=== PATIENT | male | born 1980 | race Caucasian/White ===

== ENCOUNTER 2018-06-13 16:12 | Emergency (ER) | payer OTHER, MEDICAID, SELFPAY ==
[2018-06-13 16:19] VITALS: BP 119/68; PULSE 66; RESP 16; TEMP 36.7; O2SAT 99; BMI 21.4
--- NOTE | 2018-06-13 16:22 | DI.RAD.S_ITS ---
PROCEDURE: XR FINGER RT MIN 2V INDICATIONS: Trauma TECHNIQUE: AP hand, 2 views of the 5th finger(s) acquired. COMPARISON: None. FINDINGS: Bones: There is a transverse fracture with mild displacement at the base of the fifth proximal phalanx. No suspicious bony lesions. Soft tissues: No suspicious soft tissue calcifications. IMPRESSION: Transverse fracture at the base of the fifth proximal phalanx. Dictated by: Emily Smith M.D. on 06/13/2018 at 16:41 Approved by: Emily Smith M.D. on 06/13/2018 at 16:44
--- NOTE | 2018-06-13 16:29 | ED.UPPEXIN ---
HPI - Extremity Injury (Upper) <VY Dennison - Last Filed: 06/13/18 18:30> General Chief Complaint: Extremity Injury, Upper Stated Complaint: right arm injury Time Seen by Provider: 06/13/18 16:29 Source: patient and family Mode of arrival: ambulatory Limitations: no limitations History of Present Illness HPI narrative: Patient states that he crushed his right pinky finger between 2 logs. He states that happened like this morning approximately 11:30 a.m.. He is seen by paramedics on [place] given 30 mg of Toradol. He states that there is no obvious deformity to his right pinky finger. He denies any pain to his wrist is states that he was able to move his wrist while. He states he was able to move his other fingers well. He was splinted with a JESI splint by paramedics from the past. He denies any lacerations. Related Data Home Medications Medication Instructions Recorded Confirmed No Known Home Medications 06/13/18 06/13/18 Allergies Allergy/AdvReac Type Severity Reaction Status Date / Time codeine Allergy Verified 06/13/18 16:34 Review of Systems <VY Dennison - Last Filed: 06/13/18 18:30> Review of Systems GENERAL: Denies chills, fatigue, malaise, fever, sweats. HEENT: Denies sinus pain, ear pain, sore throat, difficulty swallowing, dizziness. RESPIRATORY: Denies dyspnea, cough, wheezing, hemoptysis, sputum. CARDIOVASCULAR: Denies chest pain, palpitations, orthopnea, edema, GASTROINTESTINAL: Denies nausea, vomiting, abdominal pain, diarrhea, constipation, melena. : Denies dysuria, frequency, incontinence, hematuria, urinary retention. MUSCULOSKELETAL: See HPI SKIN: See HPI NEUROLOGIC: Denies weakness, headache, numbness, change in speech, confusion, seizures, incoordination. PSYCHIATRIC: No concerning psychosocial issues. 12 point review of systems is negative except for those stated above Exam <VY Dennison - Last Filed: 06/13/18 18:30> Narrative Exam Narrative: GENERAL: This is a well-nourished, well-developed patient, no acute distress with family at bedside. HEAD: Atraumatic. Normocephalic. No temporal or scalp tenderness. EYES: Pupils equal round and reactive. Extraocular motions intact. No scleral icterus. No injection or drainage. ENT: Nose without bleeding, purulent drainage or septal hematoma. Throat without erythema, tonsillar hypertrophy or exudate. Uvula midline. Airway patent. NECK: Trachea midline. No JVD or lymphadenopathy. Supple, nontender, no meningeal signs. CARDIOVASCULAR: Regular rate and rhythm without murmurs, gallops, or rubs. RESPIRATORY: Clear to auscultation. Breath sounds equal bilaterally. No wheezes, rales, or rhonchi. GASTROINTESTINAL: Abdomen soft, non-tender, nondistended. No hepato-splenomegaly, or palpable masses. No guarding. EXTREMITIES: Obvious deformity of right hand 5th digit. Digit is flexed and slightly rotated externally. Sensation is intact. Skin is warm right pinky finger. Patient has full range of motion all other digits of right finger. Patient is able to flex and extend right wrist. Patient is able to pronate and supinate right wrist. He has no pain on palpation of right snuffbox. BACK: Nontender without deformity or crepitance. No flank tenderness. NEURO: AOx3. SKIN: Ecchymosis at the base of the right 5th finger. However skin is intact with no lacerations. Initial Vital Signs Initial Vital Signs: Vital Signs Temperature 98.0 F 06/13/18 16:19 Pulse Rate 66 06/13/18 16:19 Respiratory Rate 16 06/13/18 16:19 Blood Pressure 119/68 06/13/18 16:19 Pulse Oximetry 99 06/13/18 16:19 <Mike Ledesma DO - Last Filed: 06/14/18 07:11> Initial Vital Signs Initial Vital Signs: Vital Signs Temperature 98.0 F 06/13/18 16:19 Pulse Rate 66 06/13/18 16:19 Respiratory Rate 16 06/13/18 16:19 Blood Pressure 119/68 06/13/18 16:19 Pulse Oximetry 99 06/13/18 16:19 Procedures <VY Dennison - Last Filed: 06/13/18 18:30> Orthopedic Fracture Reduction Fracture #1: Time Out Performed: Yes (patient participating in care ) Side: right Fracture Reduction Location: finger Analgesia: nerve block (2.5 cc l idocaine digital block) Technique: direct manipulation Post-reduction neuro exam: no change Post-reduction vascular exam: intact Splint Applied: Yes Patient Tolerated Procedure: Well Additional Comments: finger warm after procedure Course <VY Dennison - Last Filed: 06/13/18 18:30> Additional Information: Patient had x-rays taken. He received a digital block as per the procedural note. His finger was reduced and splinted. The finger remained warm after splinting. The patient declined any anxiety or pain medications prior to reduction. He declined any pain medication prescriptions upon discharge. I checked on him several times throughout his stay. Orders Ordered: ED Orders 06/13/18 16:22 XR finger RT min 2V Stat Vital Signs - 8 hr 06/13/18 16:19 06/13/18 17:40 Temperature 98.0 F Pulse Rate 66 75 Respiratory Rate 16 16 Blood Pressure 119/68 Blood Pressure [Left Arm] 122/65 H Pulse Oximetry 99 99 <Mike Ledesma DO - Last Filed: 06/14/18 07:11> Orders Ordered: ED Orders 06/13/18 16:22 XR finger RT min 2V Stat Vital Signs - 8 hr 06/13/18 16:19 06/13/18 17:40 Temperature 98.0 F Pulse Rate 66 75 Respiratory Rate 16 16 Blood Pressure 119/68 Blood Pressure [Left Arm] 122/65 H Pulse Oximetry 99 99 MDM - Extremity Injury (Upper) <GUSTAVO Dennison-BC - Last Filed: 06/13/18 18:30> Imaging Data finger xray : Radiologist's impression: [address] [address] XRay Report Signed Patient: Scotty Peter MR#: [id number] : 1980 Acct:[id number] Age/Sex: 38 / M Date of Service: 06/13/18 Loc: ED Accession Number: [id number] Procedure: XR finger RT min 2V Ordering Provider: Mike Ledesma D.O. PROCEDURE: XR FINGER RT MIN 2V INDICATIONS: Trauma TECHNIQUE: AP hand, 2 views of the 5th finger(s) acquired. COMPARISON: None. FINDINGS: Bones: There is a transverse fracture with mild displacement at the base of the fifth proximal phalanx. No suspicious bony lesions. Soft tissues: No suspicious soft tissue calcifications. IMPRESSION: Transverse fracture at the base of the fifth proximal phalanx. Dictated by: Emily Smith M.D. on 06/13/2018 at 16:41 Approved by: Emily Smith M.D. on 06/13/2018 at 16:44 [facility] Narrative Medical decision making narrative: Patient presented with a fracture of his right 5th digit. It was reduced per the procedural note. Patient tolerated well. He was splinted afterwards, and his finger remained warm. Capillary refill is intact after the reduction. Discussed at length with patient and follow-up care. Referral placed for [facility]. Patient declined pain medication upon discharge. Discussed at length monitoring for circulation of his 5th digit. Discharge Plan Departure Patient Disposition: Home, Self-Care Clinical Impression: Finger fracture, right Discharge Date/Time: 06/13/18 18:08 Interventions: ED Discharge Assessment Last Done: 06/13/18 18:08 Instructions: DI for Finger Fracture, How To Perform RICE (Rest, Ice, Compress, Elevate), How to Take Care of Your Splint Activity Restrictions/Additional Instructions: I have referred you to [facility]. I encourage you to follow up with them. Can also follow up with primary care physician. Use rest, ice, compression and elevation. Take ibuprofen and Tylenol as needed for pain. I have given you instructions on caring for splint, finger fracture and rest eyes compression and elevation. Monitor for circulation of the finger by monitoring for warmth and color. Be evaluated immediately if you are concerned about decreased circulation. Prescriptions: No Action No Known Home Medications RF: 0 Referrals: [facility] [Outside] Allen Myers MD [Physician] - <Mike Ledesma DO - Last Filed: 06/14/18 07:11> Cosign ED Attending Faizaature Attestation: I was available for consultation during this patient's emergency department encounter
[2018-06-13 17:40] VITALS: BP 122/65; PULSE 75; RESP 16; O2SAT 99
--- NOTE | 2018-06-13 17:41 | ED_ITS ---
HPI - Extremity Injury (Upper) <VY Dennison - Last Filed: 06/13/18 18:30> General Chief Complaint: Extremity Injury, Upper Stated Complaint: right arm injury Time Seen by Provider: 06/13/18 16:29 Source: patient and family Mode of arrival: ambulatory Limitations: no limitations History of Present Illness HPI narrative: Patient states that he crushed his right pinky finger between 2 logs. He states that happened like this morning approximately 11:30 a.m.. He is seen by paramedics on [place] given 30 mg of Toradol. He states that there is no obvious deformity to his right pinky finger. He denies any pain to his wrist is states that he was able to move his wrist while. He states he was able to move his other fingers well. He was splinted with a JESI splint by paramedics from the past. He denies any lacerations. Related Data Home Medications Medication Instructions Recorded Confirmed No Known Home Medications 06/13/18 06/13/18 Allergies Allergy/AdvReac Type Severity Reaction Status Date / Time codeine Allergy Verified 06/13/18 16:34 Review of Systems <VY Dennison - Last Filed: 06/13/18 18:30> Review of Systems GENERAL: Denies chills, fatigue, malaise, fever, sweats. HEENT: Denies sinus pain, ear pain, sore throat, difficulty swallowing, dizziness. RESPIRATORY: Denies dyspnea, cough, wheezing, hemoptysis, sputum. CARDIOVASCULAR: Denies chest pain, palpitations, orthopnea, edema, GASTROINTESTINAL: Denies nausea, vomiting, abdominal pain, diarrhea, constipation, melena. : Denies dysuria, frequency, incontinence, hematuria, urinary retention. MUSCULOSKELETAL: See HPI SKIN: See HPI NEUROLOGIC: Denies weakness, headache, numbness, change in speech, confusion, seizures, incoordination. PSYCHIATRIC: No concerning psychosocial issues. 12 point review of systems is negative except for those stated above Exam <VY Dennison - Last Filed: 06/13/18 18:30> Narrative Exam Narrative: GENERAL: This is a well-nourished, well-developed patient, no acute distress with family at bedside. HEAD: Atraumatic. Normocephalic. No temporal or scalp tenderness. EYES: Pupils equal round and reactive. Extraocular motions intact. No scleral icterus. No injection or drainage. ENT: Nose without bleeding, purulent drainage or septal hematoma. Throat without erythema, tonsillar hypertrophy or exudate. Uvula midline. Airway patent. NECK: Trachea midline. No JVD or lymphadenopathy. Supple, nontender, no meningeal signs. CARDIOVASCULAR: Regular rate and rhythm without murmurs, gallops, or rubs. RESPIRATORY: Clear to auscultation. Breath sounds equal bilaterally. No wheezes , rales, or rhonchi. GASTROINTESTINAL: Abdomen soft, non-tender, nondistended. No hepato-splenomegaly , or palpable masses. No guarding. EXTREMITIES: Obvious deformity of right hand 5th digit. Digit is flexed and slightly rotated externally. Sensation is intact. Skin is warm right pinky finger. Patient has full range of motion all other digits of right finger. Patient is able to flex and extend right wrist. Patient is able to pronate and supinate right wrist. He has no pain on palpation of right snuffbox. BACK: Nontender without deformity or crepitance. No flank tenderness. NEURO: AOx3. SKIN: Ecchymosis at the base of the right 5th finger. However skin is intact with no lacerations. Initial Vital Signs Initial Vital Signs: Vital Signs Temperature 98.0 F 06/13/18 16:19 Pulse Rate 66 06/13/18 16:19 Respiratory Rate 16 06/13/18 16:19 Blood Pressure 119/68 06/13/18 16:19 Pulse Oximetry 99 06/13/18 16:19 <Mike Ledesma DO - Last Filed: 06/14/18 07:11> Initial Vital Signs Initial Vital Signs: Vital Signs Temperature 98.0 F 06/13/18 16:19 Pulse Rate 66 06/13/18 16:19 Respiratory Rate 16 06/13/18 16:19 Blood Pressure 119/68 06/13/18 16:19 Pulse Oximetry 99 06/13/18 16:19 Procedures <VY Dennison - Last Filed: 06/13/18 18:30> Orthopedic Fracture Reduction Fracture #1: Time Out Performed: Yes (patient participating in care ) Side: right Fracture Reduction Location: finger Analgesia: nerve block (2.5 cc l* idocaine digital block) Technique: direct manipulation Post-reduction neuro exam: no change Post-reduction vascular exam: intact Splint Applied: Yes Patient Tolerated Procedure: Well Additional Comments: finger warm after procedure Course <VY Dennison - Last Filed: 06/13/18 18:30> Additional Information: Patient had x-rays taken. He received a digital block as per the procedural note. His finger was reduced and splinted. The finger remained warm after splinting. The patient declined any anxiety or pain medications prior to reduction. He declined any pain medication prescriptions upon discharge. I checked on him several times throughout his stay. Orders Ordered: ED Orders 06/13/18 16:22 XR finger RT min 2V Stat Vital Signs - 8 hr 06/13/18 16:19 06/13/18 17:40 Temperature 98.0 F Pulse Rate 66 75 Respiratory Rate 16 16 Blood Pressure 119/68 Blood Pressure [Left Arm] 122/65 H Pulse Oximetry 99 99 <Mike Ledesma DO - Last Filed: 06/14/18 07:11> Orders Ordered: ED Orders 06/13/18 16:22 XR finger RT min 2V Stat Vital Signs - 8 hr 06/13/18 16:19 06/13/18 17:40 Temperature 98.0 F Pulse Rate 66 75 Respiratory Rate 16 16 Blood Pressure 119/68 Blood Pressure [Left Arm] 122/65 H Pulse Oximetry 99 99 MDM - Extremity Injury (Upper) <VY Dennison - Last Filed: 06/13/18 18:30> Imaging Data finger xray : Radiologist's impression: [address] [address] XRay Report Signed Patient: Scotty Peter MR#: [id number] : 1980 Acct:[id number] Age/Sex: 38 / M Date of Service: 06/13/18 Loc: ED Accession Number: [id number] Procedure: XR finger RT min 2V Ordering Provider: Mike Ledesma D.O. PROCEDURE: XR FINGER RT MIN 2V INDICATIONS: Trauma TECHNIQUE: AP hand, 2 views of the 5th finger(s) acquired. COMPARISON: None. FINDINGS: Bones: There is a transverse fracture with mild displacement at the base of the fifth proximal phalanx. No suspicious bony lesions. Soft tissues: No suspicious soft tissue calcifications. IMPRESSION: Transverse fracture at the base of the fifth proximal phalanx. Dictated by: Emily Smith M.D. on 06/13/2018 at 16:41 Approved by: Emily Smith M.D. on 06/13/2018 at 16:44 MDM Narrative Medical decision making narrative: Patient presented with a fracture of his right 5th digit. It was reduced per the procedural note. Patient tolerated well. He was splinted afterwards, and his finger remained warm. Capillary refill is intact after the reduction. Discussed at length with patient and follow-up care. Referral placed for [facility]. Patient declined pain medication upon discharge. Discussed at length monitoring for circulation of his 5th digit. Discharge Plan Departure Patient Disposition: Home, Self-Care Clinical Impression: Finger fracture, right Discharge Date/Time: 06/13/18 18:08 Interventions: ED Discharge Assessment Last Done: 06/13/18 18:08 Instructions: DI for Finger Fracture, How To Perform RICE (Rest, Ice, Compress , Elevate), How to Take Care of Your Splint Activity Restrictions/Additional Instructions: I have referred you to [facility]. I encourage you to follow up with them. Can also follow up with primary care physician. Use rest, ice, compression and elevation. Take ibuprofen and Tylenol as needed for pain. I have given you instructions on caring for splint, finger fracture and rest eyes compression and elevation. Monitor for circulation of the finger by monitoring for warmth and color. Be evaluated immediately if you are concerned about decreased circulation. Prescriptions: No Action No Known Home Medications RF: 0 Referrals: [facility] [Outside] Allen Myers MD [Physician] - <Mike Ledesma DO - Last Filed: 06/14/18 07:11> Cosign ED Attending Faizaature Attestation: I was available for consultation during this patient's emergency department encounter
== END 2018-06-13 18:08 | disposition home or self-care (01) ==
PROVIDERS: Emergency Provider Nurse Practitioner Family
DX: S62.606A Fracture of unspecified phalanx of right little finger, initial encounter for closed fracture (principal); W23.0XXA Caught, crushed, jammed, or pinched between moving objects, initial encounter
CPT/HCPCS: 26725; 73140; 99283

== ENCOUNTER 2018-06-23 13:02 | Day surgery (SDC) | payer OTHER, MEDICAID, SELFPAY ==
[2018-06-23] VITALS (7 sets, daily range): BP systolic 116–143; BP diastolic 86–96; PULSE 52–62; RESP 10–16; TEMP 36.2–37.1; O2SAT 99–100; BMI 20.5
[2018-06-23] MEDS: LACTATED RINGERS 1,000 ML 42 ML IV (14:22)
--- NOTE | 2018-06-23 15:11 | PM.PREOP ---
Pre-operative Note Interval Note Pre-op Check: Yes History & Physical Reviewed by Physician and Yes Exam Performed Changes: No
[2018-06-23] MEDS: CEFAZOLIN 2 GM/100 ML FROZ.PIGGY IV (15:15)
--- NOTE | 2018-06-23 15:19 | P.OP_ITS ---
Operative Date/Time/Diagnoses Date of procedure: 06/23/18 Time of procedure: 16:20 Pre-op diagnosis: Right small finger proximal phalanx fracture s62.616A Post-op diagnosis: same Procedure & Clinicians Procedure: Closed reduction and percutaneous fixation right small finger proximal [place]alan[place] [address] Same procedure as scheduled: Yes Indications: The patient is a 38-year-old right-hand dominant male with a 10 day history of a right small finger proximal phalanx fracture. He got his hand stuck between 2 logs. He was seen in the clinic by my partners where he was found to have a unstable apex volar proximal phalanx fracture, I have been asked to assume care for the patient. Patient has been indicated for closed reduction percutaneous pinning versus open reduction internal fixation, to address the deformity and displacement. The risks benefits and alternatives to the surgery were discussed with the patient in detail including infection, nonunion, malunion, painful hardware, stiffness, adhesions, damage to nerves and vessels, DVT, PE, need for additional procedures. The patient understands and agrees and has elected to proceed with surgery. Informed consent was signed Surgeon: Yara Flores Click Yes if Unassisted: Yes Anesthesia Type: General Operative Notes Findings: Unstable transverse small finger proximal phalanx fracture with apex volar angulation Closure Type: not applicable Specimen(s): none sent Implants & Drains: 2- 045 K-wires Applied: other (Splint) Estimated Blood Loss (mL): 0 Blood products transfused: none Tourniquet time (min): 0 Procedure in detail: The patient was seen in the preoperative area. The informed consent was confirmed with the patient. The site of surgery was marked. Patient was then brought to the operating room placed in the supine position the arm was well padded on a hand table. SCDs were placed. Bony prominences were padded. General anesthesia was administered. A well-padded brachial tourniquet was placed but not elevated. The right upper extremities prepped and draped in the standard sterile fashion. Formal time-out procedure was performed confirming the patient's site and side of surgery and presence of informed consent and administration of preoperative antibiotics, 2 g Ancef. All were in agreement. All appropriate implants were in the room and accounted for. Attention was turned to the right small finger. Fracture was visualized under mini C-arm fluoroscopy. this was a transverse extra-articular proximal phalanx base fracture. This found to be unstable and displaced. Manual traction and manipulation achieved reduction of the fracture. Then 2-045 K-wires were percutaneous placed a dorsal to volar fashion and proximal to distal crossing the fracture site. Reduction of the fracture and maintained alignment was reviewed on intraoperative fluoroscopy in multiple planes. Once the satisfactory reduction and fixation was obtained the K-wires were bent and cut. Wire caps were placed. The wires were dressed with Xeroform gauze, sterile dressings were placed and the patient was placed in an ulnar gutter style splint small finger eva-taped to the ring finger for extra support. The drapes were removed the patient was awoken from anesthesia and taken to the recovery room in good condition. There no complications from this procedure. All counts were correct. Complications: none Condition: stable Disposition: PACU Plan for aftercare: Patient will be nonweightbearing on the right upper extremity. He will keep his splint clean dry and intact. Will follow up in 7- 10 days for repeat examination and x-rays. K-wires will stay in place for 5-6 weeks. Patient will be able to use his thumb through 3rd fingers as tolerated.
[2018-06-23] MEDS: fentaNYL 100 MCG/2 ML INJ 50 MCG IV ×2 (16:19→16:29)
[2018-06-23] MEDS: HYDROCODONE/ACET 5/325 TABLET 1 TAB PO (16:38)
== END 2018-06-23 17:10 | disposition home or self-care (01) ==
PROVIDERS: Orthopaedic Surgery Foot and Ankle Surgery; Visit Provider Orthopaedic Surgery Orthopaedic Surgery of the Spine
DX: S62.616A Displaced fracture of proximal phalanx of right little finger, initial encounter for closed fracture (principal); W23.1XXA Caught, crushed, jammed, or pinched between stationary objects, initial encounter; Y93.H9 Activity, other involving exterior property and land maintenance, building and construction
CPT/HCPCS: 26727; J0690; J1100; J2405; J2704; J3010